=== PATIENT | male | born 1970 | race Caucasian/White ===

== ENCOUNTER 2017-09-02 06:56 | Observation (INO) | payer OTHER ==
[~2017-09-02] VITALS: Ht 180.3 cm; Wt 98.2 kg
[~2017-09-02 06:56] MED LIST: ATARAX,VISTARIL50 MG PO; ATIVAN1 M1 PO; COLCHICINE0.6 M1 PO; INDOCIN50 MG PO; KLONOPIN1 MG PO; LAMICTAL150 M1 PO; LEXAPRO20 MG PO; LITHIUM CARBON300 M1 PO; LITHIUM CARBON600 MG PO; METOPROLOL; NORCO 5/3251 TABLET PO; NORVASC; PRILOSEC40 MG PO; SEROQUEL300 MG PO; SIMVASTATIN40 MG PO; WELLBUTRIN SR150 MG PO; WELLBUTRIN75 MG PO; [UNRECOGNIZED DRUG - OTHER]
[2017-09-02 07:32] LABS: HEMATOCRIT 43.3 % (38.0-50.0); MCHC 34.2 G/DL (30.0-36.0); MCV 87.7 FL (86-99); MEAN PLAT.VOLUME 9.5 uM^3 (9.0-12.4); PLATELET COUNT 249 K/uL (156-360); RBC DIS.WIDTH-CV 13.6 % (11.8-14.6); RBC DIS.WIDTH-SD 43.6 % (39-53); RED BLOOD COUNT 4.94 M/uL (4.00-5.50); WHITE BLOOD COUNT 10.6 K/uL (4.1-10.2)
[2017-09-02 07:48] LABS: CHLORIDE 105 mEq/L (99-109); POTASSIUM 4.6 mEq/L (3.7-5.4); SODIUM 138 mEq/L (136-147)
[2017-09-02 07:50] LABS: GLUCOSE 113 mg/dL (70-99)
[2017-09-02 07:51] LABS: ANION GAP 8 MEQ/L (2-14)
[2017-09-02 07:52] LABS: TROP-I INTERPRETATION NEGATIVE; TROPONIN-I 0.06 ng/mL (0.0-0.30)
[2017-09-02 07:54] LABS: GFR ESTIMATE (CALCULATED) > 59 mL/min/; UREA NITROGEN (BUN) 16 mg/dL (9-23)
[2017-09-02] MEDS ORDERED: INDOMETHACIN50 MG PO (08:55)
[2017-09-02] MEDS ORDERED: LAMOTRIGINE200 MG PO (08:57)
[2017-09-02] MEDS ORDERED: HYDROXYZINE PAM50 MG PO (08:58)
[2017-09-02] MEDS ORDERED: LOPRESSOR100 M1 PO (08:58)
[2017-09-02] MEDS ORDERED: OMEPRAZOLE40 M1 PO (09:02)
[2017-09-02] MEDS ORDERED: COLCHICINE0.6 M1 PO (09:05)
[2017-09-02] MEDS ORDERED: LITHIUM CARBON300 M2 PO (09:06)
[2017-09-02 09:51] VITALS: BP 118/66
[2017-09-02 12:03] VITALS: BP 101/52
[2017-09-02 13:12] LABS: TROP-I INTERPRETATION NEGATIVE; TROPONIN-I 0.07 ng/mL (0.0-0.30)
[2017-09-02 13:51] LABS: Estimated Average Glucose 123 mg/dL (70-123); HEMOGLOBIN A1c (GLYCOHEMOGLOB) 5.9 % HGB (Below 5.7)
[2017-09-02 16:11] VITALS: BP 122/66
[2017-09-02 19:23] LABS: TROP-I INTERPRETATION NEGATIVE; TROPONIN-I 0.09 ng/mL (0.0-0.30)
[2017-09-02 20:00] VITALS: BP 113/57
[2017-09-02 23:41] VITALS: BP 103/55
[2017-09-03 03:50] VITALS: BP 119/61
[2017-09-03 05:59] LABS: HDL CHOLESTEROL 41 MG/DL (Desirable>=40); LDL CHOLESTEROL 124 mg/dL (Desirable<100); NON-HDL CHOLESTEROL 152 mg/dL (Desirable<160); TOTAL CHOLESTEROL 193 mg/dL (Desirable<200); TRIGLYCERIDES 138 MG/DL (Normal: <150)
[2017-09-03 07:00] VITALS: BP 109/62
[2017-09-03 11:31] VITALS: BP 124/64
[2017-09-03] MEDS ORDERED: NICOTINE PATCH1 EAC2 TD (12:17)
[2017-09-03] MEDS ORDERED: OMEPRAZOLE40 M1 PO (12:18)
== END 2017-09-03 13:25 | disposition home or self-care (01) ==
LOC: EME 06:56 → EDOF 08:26 → 5WEST 08:26 → ENRESERV 08:32 → 5WEST 09:26 → ENPENDDIS 09-03 → 5WEST 09-03 13:25
PROVIDERS: Internal Medicine; Nurse Practitioner Family
DX: R07.89 Other chest pain (principal); M10.9 Gout, unspecified; I10 Essential (primary) hypertension; F41.9 Anxiety disorder, unspecified; F32.9 Major depressive disorder, single episode, unspecified; R73.03 Prediabetes; K21.9 Gastro-esophageal reflux disease without esophagitis; E78.5 Hyperlipidemia, unspecified; G89.29 Other chronic pain; F17.200 Nicotine dependence, unspecified, uncomplicated; Z71.6 Tobacco abuse counseling; I25.2 Old myocardial infarction; J45.909 Unspecified asthma, uncomplicated; Z90.49 Acquired absence of other specified parts of digestive tract; Z82.49 Family history of ischemic heart disease and other diseases of the circulatory system
CPT/HCPCS: 71020; 80048; 80061; 80178; 83036; 84484; 85027; 93005; 99202; 99281; 99284; G0378; Q0177

== ENCOUNTER 2017-10-10 09:37 | Day surgery (SDC) | payer OTHER ==
[~2017-10-10] VITALS: Ht 179.1 cm; Wt 110.2 kg
[~2017-10-10 09:37] MED LIST changes: +ASPIRIN81 M2 PO; +HYDROXYZINE PAM50 MG PO; +INDOMETHACIN50 MG PO; +LAMOTRIGINE200 MG PO; +LITHIUM CARBON300 M2 PO; +LOPRESSOR100 M1 PO; +METOPROLOL TAR100 MG PO; +NICOTINE PATCH1 EAC2 TD; +OMEPRAZOLE40 M1 PO; +PRILOSEC20 MG PO; +PROAIR RESPICL90 MCG IH; +VISTARIL50 MG PO
[2017-10-10 17:50] VITALS: BP 123/58
[2017-10-10 20:00] VITALS: BP 130/71
[2017-10-10 23:55] VITALS: BP 100/54
[2017-10-11 04:00] VITALS: BP 116/58
[2017-10-11 06:43] LABS: BASOPHIL COUNT 0.1 K/uL (0-0.1); EOSINOPHIL (%) 2.7 % (0-5); EOSINOPHIL COUNT 0.2 K/uL (0-0.3); IMMATURE GRANULOCYTE (%) 0.2 % (0.0-0.7); LYMPHOCYTE COUNT 1.4 K/uL (1.0-2.8); MCH 29.3 PG (29.0-34.0); MCHC 33.3 G/DL (30.0-36.0); MEAN PLAT.VOLUME 9.9 uM^3 (9.0-12.4); MONOCYTE (%) 9.3 % (3-12); MONOCYTE COUNT 0.8 K/uL (0-0.8); NEUTROPHIL (%) 69.8 % (45-76); NEUTROPHIL COUNT 5.6 K/uL (1.8-6.4); PLATELET COUNT 215 K/uL (156-360); RBC DIS.WIDTH-CV 13.1 % (11.8-14.6); RBC DIS.WIDTH-SD 42.6 % (39-53); RED BLOOD COUNT 4.09 M/uL (4.00-5.50); WHITE BLOOD COUNT 8.1 K/uL (4.1-10.2)
[2017-10-11 06:44] LABS: INSTRUMENT ABS NEUTROPHIL CT 5.6 K/uL
[2017-10-11 07:03] LABS: ANION GAP 6 MEQ/L (2-14); CHLORIDE 107 MEQ/L (99-109); GFR ESTIMATE (CALCULATED) > 59 mL/min/; GLUCOSE 98 mg/dL (70-99); POTASSIUM 4.2 MEQ/L (3.7-5.4); SAMPLE HEMOLYSIS CHECK 0; SAMPLE ICTERIC CHECK 0; SAMPLE LIPEMIA CHECK 0; SODIUM 140 MEQ/L (136-147); UREA NITROGEN (BUN) 17 mg/dL (9-23)
[2017-10-11 08:45] VITALS: BP 127/59
[2017-10-11] MEDS ORDERED: CLOPIDOGREL75 MG PO (09:17)
[2017-10-11] MEDS ORDERED: ATORVASTATIN CA40 MG PO (09:17)
[2017-10-11] MEDS ORDERED: ASPIR-LOW81 MG PO (09:17)
== END 2017-10-11 11:02 | disposition home or self-care (01) ==
LOC: CATH 09:37 → 4EAST 13:00 → 2SOUTH 13:00 → ENRESERV 13:38 → 4EAST 17:51
PROVIDERS: Internal Medicine Cardiovascular Disease
DX: I25.119 Atherosclerotic heart disease of native coronary artery with unspecified angina pectoris (principal); I10 Essential (primary) hypertension; Z82.49 Family history of ischemic heart disease and other diseases of the circulatory system; F17.211 Nicotine dependence, cigarettes, in remission; Z79.82 Long term (current) use of aspirin
CPT/HCPCS: 80048; 85025; 85347; 93005; C1725; C1769; C1874; C1887; G0378; J0153; J1200; J1644; J2250; J3010; J3246; J7030

== ENCOUNTER 2018-06-20 11:32 | Day surgery (SDC) | payer OTHER ==
[~2018-06-20] VITALS: Ht 179.1 cm; Wt 104.3 kg
[~2018-06-20 11:32] MED LIST changes: +ASPIR-LOW81 MG PO; +ATORVASTATIN CA40 MG PO; +BUPROPION XL150 MG PO; +CLOPIDOGREL75 MG PO; +HYDROXYZINE HCL50 MG PO; +ISOSORBIDE MONO30 MG PO; +LAMICTAL200 MG PO; +NITROGLYCERIN0.4 MG SL; +PANTOPRAZOLE SO40 MG PO; +PLAVIX75 MG PO; +PROPRANOLOL HCL80 M1 PO; -VISTARIL50 MG PO
== END 2018-06-20 16:23 | disposition home or self-care (01) ==
LOC: CATH 11:32
DX: R07.9 Chest pain, unspecified (principal); I25.10 Atherosclerotic heart disease of native coronary artery without angina pectoris; Z95.5 Presence of coronary angioplasty implant and graft; I10 Essential (primary) hypertension; E78.2 Mixed hyperlipidemia; Z87.891 Personal history of nicotine dependence; Z82.49 Family history of ischemic heart disease and other diseases of the circulatory system; Z79.82 Long term (current) use of aspirin; Z79.02 Long term (current) use of antithrombotics/antiplatelets
CPT/HCPCS: C1769; C1887; J0153; J1644; J2250; J3010